=== PATIENT | male | born 1990 | race Caucasian/White ===

== ENCOUNTER 2017-10-12 00:37 | Emergency (ER) | payer BC ==
[~2017-10-12] VITALS: Ht 180.3 cm; Wt 61.4 kg
[~2017-10-12 00:37] MED LIST: AMOXICILLIN500 MG PO; CIALIS5 MG PO; CLARITIN10 M1 PO; ULTRAM50 MG PO
[2017-10-12] MEDS ORDERED: AMOXICILLIN500 MG PO (00:56)
[2017-10-12] MEDS ORDERED: PERCOCET 5/325M1 TAB PO (00:56)
[2017-10-12 01:20] VITALS: BP 145/70
== END 2017-10-12 01:20 | disposition home or self-care (01) | DRG 159 ==
LOC: ED 00:37
DX: K05.10 Chronic gingivitis, plaque induced (principal); F17.210 Nicotine dependence, cigarettes, uncomplicated; K02.9 Dental caries, unspecified